=== PATIENT | female | born 1985 | race Caucasian/White ===

== ENCOUNTER 2018-11-11 22:42 | Emergency (ER) | payer MEDICAID ==
[~2018-11-11] VITALS: Ht 160 cm; Wt 59.1 kg
[2018-11-12] MEDS ORDERED: dexamethasone sod phosphate 10mg/ml inj PO STA (00:11)
[2018-11-12] MEDS ORDERED: diphenhydrAMINE 25mg capsule PO ONE (00:15)
[2018-11-12] MEDS ORDERED: diphenhydrAMINE 50 mg/ml inj IM ONE (00:45)
[2018-11-12] MEDS ORDERED: diphenhydrAMINE 50 mg/ml inj IV ONE (00:50)
[2018-11-12] MEDS ORDERED: METH4TAB3 PO (00:55)
[2018-11-12] MEDS ORDERED: EPIN0.3P3 SUBCUT (00:55)
[2018-11-12 01:24] VITALS: BP 176/94
== END 2018-11-12 01:26 | disposition home or self-care (01) ==
LOC: ER 22:43
DX: T78.40XA Allergy, unspecified, initial encounter (principal); J45.909 Unspecified asthma, uncomplicated; F10.99 Alcohol use, unspecified with unspecified alcohol-induced disorder; Z86.14 Personal history of Methicillin resistant Staphylococcus aureus infection; Z79.899 Other long term (current) drug therapy; X58.XXXA Exposure to other specified factors, initial encounter; Y93.89 Activity, other specified; Y92.89 Other specified places as the place of occurrence of the external cause; Y99.8 Other external cause status; Y90.9 Presence of alcohol in blood, level not specified
CPT/HCPCS: 96374; 99283; J1100; J1200